=== PATIENT | male | born 1940 | race Caucasian/White ===

== ENCOUNTER → 2024-08-09 | Outpatient (CLI) | payer OTHER ==
[~2024-08-09] MED LIST: AMLO5 PO; ASPI81EC PO; BETA1 PO; ENOX100I SC; FERSU300 PO; FUROSEMIDE20 MG PO; GLUCOSAMINE; Glucophage1000 MG PO; K-Dur10 MEQ; LOSA25 PO; METF500 PO; OXYACE7.5T PO; SIMV40 PO; Simvastatin20 MG PO; TAMS.4ER PO; TIMO.5OPSO LEFTEYE; WARF5 PO
[2024-08-09 19:09] LABS: BASOPHILS ABSOLUTE AUTO 0.04 K/mm3 (0.00-0.23); BASOPHILS PERCENT AUTO 0 % (0-2); EOSINOPHILS ABSOLUTE AUTO 0.13 K/mm3 (0.00-0.68); EOSINOPHILS PERCENT AUTO 1 % (0-6); Hemoglobin 10.3 g/dL (13.5-17.5); IMMATURE GRAN ABSOLUTE AUTO 0.07 K/mm3 (0.00-0.10); IMMATURE GRAN PERCENT AUTO 1 % (0-1); LYMPHOCYTES ABSOLUTE AUTO 2.31 K/mm3 (0.84-5.20); LYMPHOCYTES PERCENT AUTO 23 % (21-46); MONOCYTES ABSOLUTE AUTO 1.22 K/mm3 (0.16-1.47); MONOCYTES PERCENT AUTO 12 % (4-13); Mean Corpuscular HGB 30.6 pg (26.0-34.0); Mean Corpuscular HGB Conc 33.2 g/dL (31.5-36.5); Mean Corpuscular Volume 92 fL (80-100); NEUTROPHILS ABSOLUTE AUTO 6.15 K/mm3 (1.96-9.15); NEUTROPHILS PERCENT AUTO 62 % (41-73); RDW Coefficient Variation 15.4 % (11.7-14.2); RDW Standard Deviation 51.8 fL (35.1-46.3); Red Blood Cell Count 3.37 M/mm3 (4.30-5.90); White Blood Cell Count 9.92 K/mm3 (4.00-11.30)
[2024-08-09 19:42] LABS: Albumin, Blood 3.1 g/dL (3.4-5.0); Albumin/Globulin Ratio 0.7 (0.8-1.8); Bilirubin, Total 0.5 mg/dL (0.1-1.0); Bun/Creatinine Ratio 25.8 (12.0-20.0); Calcium, Blood 9.1 mg/dL (8.5-10.1); Creatinine, Blood 1.24 mg/dL (0.60-1.20); Globulin, Blood 4.5 g/dL (2.2-4.0); Potassium, Blood 4.6 mmol/L (3.5-5.5); Total Protein, Blood 7.6 g/dL (6.4-8.2)
== END ==
LOC: LAB 18:43 → LAB SHORT 18:43
PROVIDERS: Nurse Practitioner Family
DX: I10 Essential (primary) hypertension (principal); D50.9 Iron deficiency anemia, unspecified; R31.0 Gross hematuria
CPT/HCPCS: 80053; 82728; 83540; 83550; 85025; 87086

== ENCOUNTER 2024-09-19 20:32 | Inpatient (IN) | payer OTHER ==
[~2024-09-19] VITALS: Ht 182.9 cm; Wt 76.7 kg
[~2024-09-19 20:32] MED LIST changes: -AMLO10 PO; -ASCO500 PO; -DORZOLAMIDE-TIM10 ML BOTHEYES; +Etomidate 2MG / ML 10ML Vial IV ONE; -FERROUS GLUCON324 M2 PO; -GUAI600T33 PO; -HYDROCODONE-AC1 EAC7 PO; -MIRALAX1714 PO; -PANT40 PO; -PREG50 PO; +Phenylephrine HCl 10mg/ml 1 ml Vial IV ONE; +Propofol 10mg/ml 20 ml Vial (Procedural) IV ONE; -TRAM50 PO
[2024-09-19 21:01] LABS: BASOPHILS ABSOLUTE AUTO 0.01 K/mm3 (0.00-0.23); BASOPHILS PERCENT AUTO 0 % (0-2); EOSINOPHILS ABSOLUTE AUTO 0.04 K/mm3 (0.00-0.68); EOSINOPHILS PERCENT AUTO 0 % (0-6); Hematocrit 18.2 % (37.0-53.0); Hemoglobin 5.6 g/dL (13.5-17.5); IMMATURE GRAN ABSOLUTE AUTO 0.42 K/mm3 (0.00-0.10); IMMATURE GRAN PERCENT AUTO 4 % (0-1); LYMPHOCYTES ABSOLUTE AUTO 2.64 K/mm3 (0.84-5.20); LYMPHOCYTES PERCENT AUTO 28 % (21-46); MONOCYTES PERCENT AUTO 9 % (4-13); Mean Corpuscular HGB 28.9 pg (26.0-34.0); Mean Corpuscular HGB Conc 30.8 g/dL (31.5-36.5); Mean Corpuscular Volume 94 fL (80-100); Mean Platelet Volume 9.9 fL (9.1-12.4); NEUTROPHILS ABSOLUTE AUTO 5.59 K/mm3 (1.96-9.15); NEUTROPHILS PERCENT AUTO 58 % (41-73); NRBC ABSOLUTE 0.36 K/mm3 (0.00-0.02); NRBC Auto 3.8 /100 WBC (0.0-0.2); Platelet Count 187 K/mm3 (150-400); RDW Coefficient Variation 18.1 % (11.7-14.2); RDW Standard Deviation 59.4 fL (35.1-46.3); Red Blood Cell Count 1.94 M/mm3 (4.30-5.90)
[2024-09-19 21:17] LABS: Albumin, Blood 2.3 g/dL (3.4-5.0); Albumin/Globulin Ratio 0.5 (0.8-1.8); Bilirubin, Total 0.6 mg/dL (0.1-1.0); Calcium, Blood 8.5 mg/dL (8.5-10.1); Creatinine, Blood 1.11 mg/dL (0.60-1.20); Globulin, Blood 4.5 g/dL (2.2-4.0); Potassium, Blood 4.6 mmol/L (3.5-5.5); Total Protein, Blood 6.8 g/dL (6.4-8.2)
[2024-09-20] MEDS ORDERED: Pantoprazole Sodium 40 MG Injection IV ONE (00:10)
[2024-09-20] MEDS ORDERED: Pantoprazole Sodium 40 MG in NS 50 ML IV SCH ×2 (00:10→01:40)
[2024-09-20] MEDS ORDERED: FLU VACC TS2024-25(6MOS UP)/PF 45 MCG/0.5 ML SYRINGE IM ONE (01:30)
[2024-09-20 08:23] LABS: Hematocrit 22.9 % (37.0-53.0); Hemoglobin 7.5 g/dL (13.5-17.5)
[2024-09-20] MEDS ORDERED: AmLODIPine Besylate 5 MG Tab PO SCH (09:00)
[2024-09-20] MEDS ORDERED: Atorvastatin 10 MG Tab PO SCH (09:00)
[2024-09-20] MEDS ORDERED: Losartan Potassium 50 MG Tab PO SCH (09:00)
[2024-09-20 10:53] LABS: International Normalized Ratio 2.18
[2024-09-20 13:56] LABS: Hematocrit 21.7 % (37.0-53.0); Hemoglobin 7.1 g/dL (13.5-17.5)
[2024-09-20] MEDS ORDERED: PREG50 PO (15:50)
[2024-09-20] MEDS ORDERED: HYDROCODONE-AC1 EAC7 PO (15:51)
[2024-09-20] MEDS ORDERED: MIRALAX1714 PO (15:52)
[2024-09-20] MEDS ORDERED: FERROUS GLUCON324 M2 PO (15:53)
[2024-09-20] MEDS ORDERED: TAMS.4ER PO (15:53)
[2024-09-20 15:54] VITALS: BP 146/58
[2024-09-20] MEDS ORDERED: ASCO500 PO (15:54)
[2024-09-20] MEDS ORDERED: AMLO10 PO (15:55)
--- NOTE | 2024-09-20 18:01 | NUR ---
SHIFT SUMMARY PT A NEW ADMIT THIS EVENING, AOX4 BUT SLIGHTLY FORGETFUL. 1 ASSIST WITH THE FWW. PT WEARS BRIEFS BUT STATES HE IS CONTINENT. CALLS AND MAKES HIS NEEDS KNOWN. PROTONIX DRIP INFUSING. PICTURES OF COCCYX WOUND IN CHART. PT REPOSITIONED SINCE ADMIT. FAMILY UPDATED. NO OTHER COMPLAINTS AT THIS TIME. CALL LIGHT WITHIN REACH, BED LOCKED AND IN THE LOWEST POSITION. WILL REPORT TO ONCOMING NURSE.
[2024-09-20 19:48] VITALS: BP 121/59
[2024-09-20 20:06] LABS: Hematocrit 23.8 % (37.0-53.0); Hemoglobin 7.7 g/dL (13.5-17.5)
--- NOTE | 2024-09-20 20:49 | NUR ---
DIRECTOR SEARCH MARKETING STRATEGIES CALLED WITH SOME ST CHANGES- BOTH ELEVATION AND DEPRESSION WITH A RHYTHYM OF AFIB. PT ASYMPTOMATIC. CAMERA PERSON KATRIN NOTIFIED. NO NEW ORDERS.
[2024-09-21 03:30] VITALS: BP 131/56
[2024-09-21 06:03] LABS: International Normalized Ratio 2.2; Prothrombin Time Results 22.2 Sec (9.7-11.5)
--- NOTE | 2024-09-21 07:12 | NUR ---
SHIFT SUMMARY PT A&O X4 WITH LIMITED VISION. ABLE TO MAKE NEEDS KNOWN. AMBULATES WITH SBA. PT DOES C/O SOME LIGHTHEADEDNESS UPON CHANGING POSITION FROM LAYING TO SITTING. CONTINUOUS PROTONIX DRIP CONTINUES. TELE WITH AFIB AND ST CHANGES, PT ASYMPTOMATIC. EKG DONE, LEADS REPOSITIONED AND THEN REPLACED. PT SLEPT LONG INTERVALS THROUGH THE NIGHT. NPO AFTER 0600. BED IN LOWEST POSITION, CALL LIGHT WITHIN REACH, SIDE RAILS UP X3.
[2024-09-21 07:30] VITALS: BP 121/89
[2024-09-21 07:40] LABS: Hematocrit 23.8 % (37.0-53.0); Hemoglobin 7.7 g/dL (13.5-17.5); Mean Corpuscular HGB 29.8 pg (26.0-34.0); Mean Corpuscular HGB Conc 32.4 g/dL (31.5-36.5); Mean Corpuscular Volume 92 fL (80-100); Mean Platelet Volume 11.5 fL (9.1-12.4); NRBC ABSOLUTE 0.27 K/mm3 (0.00-0.02); NRBC Auto 3.1 /100 WBC (0.0-0.2); Platelet Count 127 K/mm3 (150-400); RDW Coefficient Variation 17.8 % (11.7-14.2); RDW Standard Deviation 57.3 fL (35.1-46.3); Red Blood Cell Count 2.58 M/mm3 (4.30-5.90); White Blood Cell Count 8.65 K/mm3 (4.00-11.30)
[2024-09-21 08:03] LABS: Bun/Creatinine Ratio 31.9 (12.0-20.0); Calcium, Blood 8.9 mg/dL (8.5-10.1); Creatinine, Blood 0.88 mg/dL (0.60-1.20); Potassium, Blood 4.5 mmol/L (3.5-5.5)
[2024-09-21 09:11] LABS: BAND PERCENT MAN 3 % (0-8); BASOPHILS ABSOLUTE MAN 0.08 K/mm3 (0.00-0.23); BASOPHILS PERCENT MAN 1 % (0-2); EOSINOPHILS ABSOLUTE MAN 0.08 K/mm3 (0.00-0.68); EOSINOPHILS PERCENT MAN 1 % (0-6); LYMPHOCYTES ABSOLUTE MAN 1.38 K/mm3 (0.84-5.20); LYMPHOCYTES PERCENT MAN 16 % (21-46); METAMYELOCYTE ABSOLUTE MAN 0.08 K/mm3 (0.00-0.00); METAMYELOCYTE PERCENT MAN 1 % (0-0); MONOCYTES ABSOLUTE MAN 0.25 K/mm3 (0.16-1.47); MONOCYTES PERCENT MAN 3 % (4-13); MYELOCYTE ABSOLUTE MAN 0.34 K/mm3 (0.00-0.00); MYELOCYTE PERCENT MAN 4 % (0-0); SEG NEUTROPHILS PERCENT MAN 71 % (41-73); TOTAL CELLS COUNTED 100
[2024-09-21] MEDS ORDERED: Lactated Ringer's 1,000 ML IV SCH (12:20)
[2024-09-21 12:40] VITALS: BP 135/68
[2024-09-21] MEDS ORDERED: Lidocaine HCl 4% 5 ML SDA ONE (12:52)
--- NOTE | 2024-09-21 13:11 | NUR ---
09/21/24 1311 Tiarra Landin 1305-History, Chart, Medications and Allergies reviewed before start of procedure.MONITOR INTACT WITH CONTINUOUS PULSE OXIMETRY, CONTINUOUS END TITAL CO2, AND INTERMITTENT BLOOD PRESSURE.3-LEAD EKG REVIEWED WITH PHYSICIAN PRIOR TO START OF PROCEDURE.O2 VIA POM INTACT THROUGHOUT SEDATION/PROCEDURE.Bite Block Placed.DR. OVALLE PROVIDING MAC-SEE ANESTHESIA RECORD.
[2024-09-21 14:50] VITALS: BP 117/53
[2024-09-21] MEDS ORDERED: Pregabalin 50 MG Capsule PO ONE (15:50)
[2024-09-21 15:56] VITALS: BP 122/60
[2024-09-21] MEDS ORDERED: GUAI600T33 PO (16:33)
[2024-09-21] MEDS ORDERED: TRAM50 PO (16:37)
[2024-09-21] MEDS ORDERED: DORZOLAMIDE-TIM10 ML BOTHEYES (16:40)
[2024-09-21 17:18] LABS: Hematocrit 23.2 % (37.0-53.0); Hemoglobin 7.6 g/dL (13.5-17.5)
[2024-09-21] MEDS ORDERED: WARF2.5 PO (17:37)
--- NOTE | 2024-09-21 17:58 | NUR ---
SHIFT SUMMARY PT AOX4, CALLS AND MAKES HIS NEEDS KNOWN. SBA TO THE BR. ENDO DONE TODAY, PROTONIX DRIP STOPPED. PT MEDICATED FOR NERVE/BACK PAIN PER THE EMAR. PT TOLERATED IT WELL. REPOSITIONED THROUGHOUT THE SHIFT. SBA TO THE BR USING FWW. POSSIBLE DC TOMORROW, TRENDING H AND HERNÁNDEZ. NO EVENTS PER TELE. CALL LIGHT WITHIN REACH, BED LOCKED AND IN THE LOWEST POSITION.
[2024-09-21 20:44] VITALS: BP 115/54
[2024-09-22 02:13] VITALS: BP 123/59
[2024-09-22 05:38] LABS: Hematocrit 23.9 % (37.0-53.0); Hemoglobin 7.7 g/dL (13.5-17.5); Mean Corpuscular HGB 29.8 pg (26.0-34.0); Mean Corpuscular HGB Conc 32.2 g/dL (31.5-36.5); Mean Corpuscular Volume 93 fL (80-100); Mean Platelet Volume 9.7 fL (9.1-12.4); NRBC ABSOLUTE 0.18 K/mm3 (0.00-0.02); NRBC Auto 2.3 /100 WBC (0.0-0.2); Platelet Count 155 K/mm3 (150-400); RDW Coefficient Variation 17.9 % (11.7-14.2); RDW Standard Deviation 57.2 fL (35.1-46.3); Red Blood Cell Count 2.58 M/mm3 (4.30-5.90); White Blood Cell Count 7.94 K/mm3 (4.00-11.30)
[2024-09-22 06:10] LABS: Bun/Creatinine Ratio 28.7 (12.0-20.0); Calcium, Blood 9.1 mg/dL (8.5-10.1); Creatinine, Blood 0.77 mg/dL (0.60-1.20); Potassium, Blood 4.3 mmol/L (3.5-5.5)
[2024-09-22 06:12] LABS: BAND PERCENT MAN 2 % (0-8); BASOPHILS ABSOLUTE MAN 0.07 K/mm3 (0.00-0.23); BASOPHILS PERCENT MAN 1 % (0-2); EOSINOPHILS ABSOLUTE MAN 0.23 K/mm3 (0.00-0.68); EOSINOPHILS PERCENT MAN 3 % (0-6); LYMPHOCYTES ABSOLUTE MAN 1.98 K/mm3 (0.84-5.20); LYMPHOCYTES PERCENT MAN 25 % (21-46); MONOCYTES ABSOLUTE MAN 0.55 K/mm3 (0.16-1.47); MONOCYTES PERCENT MAN 7 % (4-13); MYELOCYTE ABSOLUTE MAN 0.07 K/mm3 (0.00-0.00); MYELOCYTE PERCENT MAN 1 % (0-0); SEG NEUTROPHILS PERCENT MAN 61 % (41-73); TOTAL CELLS COUNTED 100
--- NOTE | 2024-09-22 06:12 | NUR ---
SHIFT SUMMARY PT A&O X4 WITH LIMITED VISION. DENIES FEELING DIZZY OR LIGHTHEADED WHEN UP. AMBULATEDS TO THE BR WITH WALKER AND SBA. TELE WITH AFIB- AT 0400 PT HAD 4 BEATS IN THE 40'S. HE WAS ASYMTOMATIC. PT SLEPT INTERMITTENTLY THROUGH THE NIGHT. BED IN LOWEST POSITION, CALL LIGHT WITHIN REACH, SIDE RAILS UP X2.
[2024-09-22 07:36] VITALS: BP 125/61
[2024-09-22] MEDS ORDERED: Pregabalin 50 MG Capsule PO SCH (09:00)
[2024-09-22 13:00] LABS: Percent Saturation 32.1 % (20.0-50.0)
[2024-09-22 13:46] LABS: International Normalized Ratio 2.29
[2024-09-22] MEDS ORDERED: PANT40 PO (14:25)
[2024-09-23] MEDS ORDERED: Pantoprazole Sodium 40 MG Tab PO SCH (06:00)
== END 2024-09-22 15:20 | disposition home health service (06) | DRG 811 ==
LOC: ER 20:32 → MEDS 20:33 → ERHOLD 20:33 → MEDS 09-20 15:11 → ENPENDDIS 09-22 14:10 → MEDS 09-22 15:20
PROVIDERS: Family Medicine; Physician Assistant; Student in an Organized Health Care Education/Training Program; Surgery; ADMIT Internal Medicine
PROC: 30233N1 Transfusion of Nonautologous Red Blood Cells into Peripheral Vein, Percutaneous Approach (ICD-10-PCS; principal; 2024-09-19)
PROC: 0DJ08ZZ Inspection of Upper Intestinal Tract, Via Natural or Artificial Opening Endoscopic (ICD-10-PCS; 2024-09-21)
DX: D62 Acute posthemorrhagic anemia (principal); K29.71 Gastritis, unspecified, with bleeding; I48.91 Unspecified atrial fibrillation; F17.210 Nicotine dependence, cigarettes, uncomplicated; D50.9 Iron deficiency anemia, unspecified; K22.2 Esophageal obstruction; Z66 Do not resuscitate; E78.00 Pure hypercholesterolemia, unspecified; I11.0 Hypertensive heart disease with heart failure; I50.9 Heart failure, unspecified; I35.0 Nonrheumatic aortic (valve) stenosis; Z90.49 Acquired absence of other specified parts of digestive tract; Z79.899 Other long term (current) drug therapy; Z79.2 Long term (current) use of antibiotics; Z98.890 Other specified postprocedural states; Z98.41 Cataract extraction status, right eye; Z28.21 Immunization not carried out because of patient refusal; Z79.01 Long term (current) use of anticoagulants
CPT/HCPCS: 36415; 36430; 80048; 80053; 82272; 82728; 83540; 83550; 85014; 85018; 85025; 85610; 85730; 86850; 86900; 86901; 86923; 93005; 93010; 96365; 96366; 96376; 97110; 97162; 99285; A9270; G0378; J2003; J2371; J2470; J2704; J7120; P9016

== ENCOUNTER → 2024-09-19 | Outpatient (CLI) | payer OTHER ==
[~2024-09-19] MED LIST changes: +AMLO10 PO; +ASCO500 PO; +DORZOLAMIDE-TIM10 ML BOTHEYES; +FERROUS GLUCON324 M2 PO; +GUAI600T33 PO; +HYDROCODONE-AC1 EAC7 PO; -LOSA25 PO; +LOSARTAN POTAS100 M1 PO; +MIRALAX1714 PO; +PANT40 PO; +PREG50 PO; +TRAM50 PO; +WARF2.5 PO; -WARF5 PO
[2024-09-19 19:05] LABS: BASOPHILS ABSOLUTE AUTO 0.01 K/mm3 (0.00-0.23); BASOPHILS PERCENT AUTO 0 % (0-2); EOSINOPHILS ABSOLUTE AUTO 0.03 K/mm3 (0.00-0.68); EOSINOPHILS PERCENT AUTO 0 % (0-6); Hematocrit 18.9 % (37.0-53.0); IMMATURE GRAN PERCENT AUTO 5 % (0-1); LYMPHOCYTES ABSOLUTE AUTO 1.82 K/mm3 (0.84-5.20); LYMPHOCYTES PERCENT AUTO 22 % (21-46); MONOCYTES ABSOLUTE AUTO 0.74 K/mm3 (0.16-1.47); MONOCYTES PERCENT AUTO 9 % (4-13); Mean Corpuscular HGB 28.6 pg (26.0-34.0); Mean Corpuscular HGB Conc 31.2 g/dL (31.5-36.5); Mean Corpuscular Volume 92 fL (80-100); Mean Platelet Volume 11.4 fL (9.1-12.4); NEUTROPHILS ABSOLUTE AUTO 5.44 K/mm3 (1.96-9.15); NEUTROPHILS PERCENT AUTO 64 % (41-73); NRBC ABSOLUTE 0.35 K/mm3 (0.00-0.02); NRBC Auto 4.1 /100 WBC (0.0-0.2); Platelet Count 119 K/mm3 (150-400); RDW Standard Deviation 57.1 fL (35.1-46.3); Red Blood Cell Count 2.06 M/mm3 (4.30-5.90); White Blood Cell Count 8.44 K/mm3 (4.00-11.30)
[2024-09-19 19:13] LABS: Hemoglobin 5.9 g/dL (13.5-17.5)
[2024-09-19 19:52] LABS: Albumin, Blood 2.3 g/dL (3.4-5.0); Albumin/Globulin Ratio 0.5 (0.8-1.8); Bilirubin, Total 0.5 mg/dL (0.1-1.0); Bun/Creatinine Ratio 46.8 (12.0-20.0); Calcium, Blood 8.5 mg/dL (8.5-10.1); Creatinine, Blood 1.09 mg/dL (0.60-1.20); Globulin, Blood 4.8 g/dL (2.2-4.0); Potassium, Blood 4.6 mmol/L (3.5-5.5); Total Protein, Blood 7.1 g/dL (6.4-8.2)
== END ==
LOC: LAB SHORT 17:47 → LAB 17:47
PROVIDERS: Nurse Practitioner Family
DX: D50.9 Iron deficiency anemia, unspecified (principal)
CPT/HCPCS: 80053; 85025

== ENCOUNTER 2024-09-25 15:25 | Inpatient (IN) | payer OTHER ==
[~2024-09-25] VITALS: Ht 175.3 cm; Wt 85.0 kg
[~2024-09-25 15:25] MED LIST changes: +AMLO10 PO; +ASCO500 PO; +DORZOLAMIDE-TIM10 ML BOTHEYES; -Etomidate 2MG / ML 10ML Vial IV ONE; +FERROUS GLUCON324 M2 PO; +GUAI600T33 PO; +HYDROCODONE-AC1 EAC7 PO; +MIRALAX1714 PO; +PANT40 PO; +PREG50 PO; -Phenylephrine HCl 10mg/ml 1 ml Vial IV ONE; -Propofol 10mg/ml 20 ml Vial (Procedural) IV ONE; +TRAM50 PO
[2024-09-25] MEDS ORDERED: Pantoprazole Sodium 40 MG Injection IV ONE (16:05)
[2024-09-25 16:16] LABS: Hematocrit 24.3 % (37.0-53.0); Hemoglobin 7.6 g/dL (13.5-17.5); Mean Corpuscular HGB 29.1 pg (26.0-34.0); Mean Corpuscular HGB Conc 31.3 g/dL (31.5-36.5); Mean Corpuscular Volume 93 fL (80-100); Mean Platelet Volume 11.4 fL (9.1-12.4); NRBC ABSOLUTE 0.06 K/mm3 (0.00-0.02); NRBC Auto 0.7 /100 WBC (0.0-0.2); Platelet Count 133 K/mm3 (150-400); RDW Coefficient Variation 17.7 % (11.7-14.2); RDW Standard Deviation 57.4 fL (35.1-46.3); Red Blood Cell Count 2.61 M/mm3 (4.30-5.90); White Blood Cell Count 8.62 K/mm3 (4.00-11.30)
[2024-09-25 16:30] LABS: International Normalized Ratio 3.5; Prothrombin Time Results 34.1 Sec (9.7-11.5)
[2024-09-25 16:47] LABS: BAND PERCENT MAN 1 % (0-8); BASOPHILS ABSOLUTE MAN 0.08 K/mm3 (0.00-0.23); BASOPHILS PERCENT MAN 1 % (0-2); EOSINOPHILS ABSOLUTE MAN 0.17 K/mm3 (0.00-0.68); EOSINOPHILS PERCENT MAN 2 % (0-6); LYMPHOCYTES ABSOLUTE MAN 1.89 K/mm3 (0.84-5.20); LYMPHOCYTES PERCENT MAN 22 % (21-46); METAMYELOCYTE ABSOLUTE MAN 0.08 K/mm3 (0.00-0.00); METAMYELOCYTE PERCENT MAN 1 % (0-0); MONOCYTES ABSOLUTE MAN 0.51 K/mm3 (0.16-1.47); MONOCYTES PERCENT MAN 6 % (4-13); MYELOCYTE ABSOLUTE MAN 0.17 K/mm3 (0.00-0.00); MYELOCYTE PERCENT MAN 2 % (0-0); NEUTROPHILS ABSOLUTE MAN 5.68 K/mm3 (1.96-9.15); SEG NEUTROPHILS PERCENT MAN 65 % (41-73); TOTAL CELLS COUNTED 100
[2024-09-25 16:58] LABS: Albumin, Blood 2.3 g/dL (3.4-5.0); Albumin/Globulin Ratio 0.5 (0.8-1.8); Bilirubin, Total 0.8 mg/dL (0.1-1.0); Bun/Creatinine Ratio 20.5 (12.0-20.0); Calcium, Blood 8.6 mg/dL (8.5-10.1); Creatinine, Blood 1.56 mg/dL (0.60-1.20); Globulin, Blood 4.3 g/dL (2.2-4.0); Potassium, Blood 4.8 mmol/L (3.5-5.5); Total Protein, Blood 6.6 g/dL (6.4-8.2)
[2024-09-25] MEDS ORDERED: NS 1,000 ML IV SCH (18:40)
[2024-09-25] MEDS ORDERED: Lactated Ringer's 1,000 ML IV ONE (21:29)
[2024-09-25] MEDS ORDERED: Ondansetron HCl 2 MG / ML 2ML Vial IV PRN (21:30)
[2024-09-25] MEDS ORDERED: FLU VACC TS2024-25(6MOS UP)/PF 45 MCG/0.5 ML SYRINGE IM ONE (21:30)
[2024-09-25] MEDS ORDERED: HYDROcodone 10-APAP 325 TAB PO PRN (21:35)
[2024-09-25] MEDS ORDERED: Lactated Ringer's 1,000 ML IV SCH (22:00)
[2024-09-25] MEDS ORDERED: Atorvastatin 10 MG Tab PO SCH (22:11)
[2024-09-25 22:39] LABS: Hematocrit 22.5 % (37.0-53.0)
[2024-09-26 05:59] LABS: Hemoglobin 7.3 g/dL (13.5-17.5)
[2024-09-26] MEDS ORDERED: Pantoprazole Sodium 40 MG Injection IV SCH (06:00)
[2024-09-26 06:20] LABS: International Normalized Ratio 3.81; Prothrombin Time Results 36.9 Sec (9.7-11.5)
[2024-09-26 06:28] LABS: Albumin/Globulin Ratio 0.5 (0.8-1.8); Bilirubin, Total 0.6 mg/dL (0.1-1.0); Bun/Creatinine Ratio 24.8 (12.0-20.0); Calcium, Blood 8.3 mg/dL (8.5-10.1); Creatinine, Blood 1.17 mg/dL (0.60-1.20); Globulin, Blood 4.1 g/dL (2.2-4.0); Magnesium, Blood 2.1 mg/dL (1.6-2.4); Potassium, Blood 4.6 mmol/L (3.5-5.5); Total Protein, Blood 6.1 g/dL (6.4-8.2)
[2024-09-26] MEDS ORDERED: Lactated Ringer's 1,000 ML IV ONE (06:29)
[2024-09-26] MEDS ORDERED: AmLODIPine Besylate 5 MG Tab PO SCH (09:00)
[2024-09-26] MEDS ORDERED: Tamsulosin HCl 0.4 MG Cap PO SCH (09:00)
[2024-09-26] MEDS ORDERED: Pregabalin 50 MG Capsule PO SCH (09:00)
[2024-09-26] MEDS ORDERED: Losartan Potassium 50 MG Tab PO SCH (09:00)
[2024-09-26 13:25] VITALS: BP 104/49
[2024-09-26 15:51] VITALS: BP 109/48
--- NOTE | 2024-09-26 17:27 | NUR ---
ADMISSION/SHIFT SUMMARY: PT IS A NEW ADMIT, ARRIVING TO UNIT AT APPROX 1315. PT IS A&Ox4, ANSWERS QUESTIONS APPROPRIATELY, IS COOPERATIVE W/CARE. PT HAS GLASSES, STATES HE IS LEGALLY BLIND AND HAS A DIFFICULT TIME SEEING CLEARLY. O2 SATS MAINTAINED >93% ON 2 L/MIN (RA BASELINE), PT REPORTS IMPROVEMENT TO SOB SINCE ADMISSION. PT DENIES CP, AFIB ON MONITOR W/RATE 60s. PT UNSURE OF DATE OF LAST BM, STATES A WEEK OR MORE, DESCRIBES STOOL DARK/BLACK. NO BM THIS SHIFT, MALE PUREWICK IN PLACE AND SET TO LOW CONT SUCTION. DR ZARAGOZA TO BEDSIDE THIS AFTERNOON, CURRENT PLAN IS FOR PT TO COMPLETE BOWEL PREP FOR COLONOSCOPY TOMORROW AM. PER DR ZARAGOZA, PT CAN HAVE CL DIET UNTIL APPROX 0600 ON 09/27/24 WHICH WOULD BE APPROX 3 HOURS BEFORE PROCEDURE. PT IS AGREEABLE TO PLAN OF CARE, RESTING QUIETLY IN ROOM WITH CALL LIGHT IN REACH.
[2024-09-26] MEDS ORDERED: Sodium, Potassium,Mag Sulfates 354 ML PO SCH (18:00)
[2024-09-26 18:09] LABS: Hematocrit 23.4 % (37.0-53.0); Hemoglobin 7.3 g/dL (13.5-17.5); Mean Corpuscular HGB 29.3 pg (26.0-34.0); Mean Corpuscular HGB Conc 31.2 g/dL (31.5-36.5); Mean Corpuscular Volume 94 fL (80-100); Mean Platelet Volume 11.4 fL (9.1-12.4); NRBC ABSOLUTE 0.07 K/mm3 (0.00-0.02); NRBC Auto 0.9 /100 WBC (0.0-0.2); Platelet Count 140 K/mm3 (150-400); RDW Coefficient Variation 18.1 % (11.7-14.2); RDW Standard Deviation 60.9 fL (35.1-46.3); Red Blood Cell Count 2.49 M/mm3 (4.30-5.90); White Blood Cell Count 7.45 K/mm3 (4.00-11.30)
[2024-09-26 20:26] VITALS: BP 103/48
[2024-09-27] VITALS (39 sets, daily range): BP systolic 84–113; BP diastolic 37–58
[2024-09-27 04:08] LABS: Hematocrit 21.1 % (37.0-53.0); Hemoglobin 6.5 g/dL (13.5-17.5); Mean Corpuscular HGB 28.8 pg (26.0-34.0); Mean Corpuscular HGB Conc 30.8 g/dL (31.5-36.5); Mean Corpuscular Volume 93 fL (80-100); Mean Platelet Volume 10.6 fL (9.1-12.4); NRBC ABSOLUTE 0.11 K/mm3 (0.00-0.02); NRBC Auto 1.7 /100 WBC (0.0-0.2); Platelet Count 138 K/mm3 (150-400); Red Blood Cell Count 2.26 M/mm3 (4.30-5.90); White Blood Cell Count 6.65 K/mm3 (4.00-11.30)
[2024-09-27] MEDS ORDERED: NS 500 ML IV SCH (06:15)
--- NOTE | 2024-09-27 06:45 | NUR ---
PT VITAL SIGNS STABLE THROUGHOUT THE SHIFT. PT IS AOX4, CALM AND COOPERATIVE WITH CARE. PT IS [place] BUT IS ABLE TO ANSWER QUESTIONS AND MAKE NEEDS KNOWN. PT HAS HGB 6.5 THIS AM AND IS RECEIVING 1 UNIT PRBC AND TOLERATING WELL AT THIS TIME. PT HAS COMPLETED DRINKNG SUREPREP AND HAS HAD 3 BMS, LOOSE/LIQUID BLACK/GREEN. BOWEL PREP NOT CLEAR AT THIS TIME. PT REPORTS GENERALIZED WEAKNESS BUT NO CHEST PAIN OR DYSPNEA. PT 1-2 ASSIST TO BSC. PUREWICK IN PLACE WITH GOOD URINE OUTPUT.
[2024-09-27 07:04] LABS: Albumin, Blood 1.8 g/dL (3.4-5.0); Anion Gap 9 mmol/L (3-11); Blood Urea Nitrogen 25 mg/dL (8-24); Bun/Creatinine Ratio 23.4 (12.0-20.0); CO2, Blood 26 mmol/L (21-32); Calcium, Blood 8.3 mg/dL (8.5-10.1); Chloride, Blood 106 mmol/L (98-108); Creatinine, Blood 1.07 mg/dL (0.60-1.20); Glomerular Filtration Rate 68 (60-); Glucose, Blood 140 mg/dL (70-99); Phosphorus, Blood 3.5 mg/dL (2.5-4.9); Potassium, Blood 4.4 mmol/L (3.5-5.5); Sodium, Blood 137 mmol/L (136-145)
[2024-09-27] MEDS ORDERED: Midodrine 5 MG Tab PO SCH ×2 (09:40→21:00)
[2024-09-27] MEDS ORDERED: Lactated Ringer's 1,000 ML IV SCH (09:45)
[2024-09-27] MEDS ORDERED: Sod Phosphate/Sod Biphosphate 132 ML BTL PR PRN (10:10)
[2024-09-27] MEDS ORDERED: propofoL 40 ML IV ONE (10:42)
--- NOTE | 2024-09-27 10:52 | NUR ---
Dr. Robert was called this morning because despite bowel prep for the colonoscopy the pt's stool was a dark brown/black around 0715. Dr. Robert wanted to be notifed if it clears up around 130. About 0950 the pt was usinig the [facility] and Dr. Robert stopped by the room. He ordered an enema if the stools were not clear. The enema was given and the pt held the medication in for about 15 minutes. His stools were dark green in color. Dr. Robert was notified and he wants to proceed with colonoscopy anyways. See notes for updates.
[2024-09-27 11:22] LABS: Hemoglobin 8.1 g/dL (13.5-17.5)
--- NOTE | 2024-09-27 11:53 | NUR ---
09/27/24 1153 Rose Marie Horne 1143- MONITOR INTACT WITH CONTINUOUS PULSE OXIMETRY, CONTINUOUS END TITAL CO2, AND INTERMITTENT BLOOD PRESSURE.
[2024-09-27] MEDS ORDERED: Midodrine 5 MG Tab PO ONE (15:55)
[2024-09-27] MEDS ORDERED: NS 1,000 ML IV ONE (15:55)
--- NOTE | 2024-09-27 17:02 | NUR ---
SHIFT SUMMARY NEURO: PT IS A&OX4, [place], AND HAS BEEN WITHDRAWN THIS SHIFT. 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 HE FEELS VERY FATIGUED AND HAS SLEPT MAJORITY OF THE SHIFT. HE IS A 1-2P ASSIST TX. CARDIAC: ON TELE THE PT HAS BEEN AFIB 60'S-70'S. HE DENIES ANY ANGINA OR CHEST PRESSURE. HIS BLOOD PRESSURE HAS BEEN LOW. HE HAD 1 UNIT OF PRBC INFUSING AT THE BEGINNING OF THE SHIFT AND HIS PRESSURE WAS STABLE IN THE MORNING W/ HIS MAP >60. DR. ESTES STARTED THE PT ON 10MG TID X3 DOSES OF MIDODRINE. POST COLONOSCOPY THE PT'S MAP BEGAN TO DROP<60. DR. ESTES CALLED AND INCREASED THE PT'S MIDODRINE TO 15 MG FOR THE UPCOMING SCHEDULED DOSES. HE ADDED MIDODRIINE 15MG TIDP PRN STARTING AT 0000. THE PT'S BLOOD PRESSURE CONTINUED TO HAVE THE MAP IN THE 50'S DESPITE THE MIDODRINE AND LAYING SUPINE. DR. ESTES ORDERED A 1L BOLUS TO BE GIVEN OVER 2HRS AT A RATE OF 500CC'S. BLOOD PRESSURE STILL WITH MAP 58-63. THIS RN CALLED DR ESTES AND ASKED WHAT HE WOULD LIKE IF THE PT'S BLOOD PRESSURE CONTINUES TO DROP. DR. ESTES SAID HE IS GOING TO ORDER MAINTANCE FLUIDS AND HE WOULD BE OKAY IF THE PT RECIEVED UP TO 3L OF FLUIDS BEFORE BEING SENT TO ICU FOR PRESSORS. THIS WAS DISCUSSED WITH CAR STORER FRANCINE Mota. BLOOD PRESSURES BEING MONITORED Q15 AT THIS TIME . RESP: THE PT HAS BEEN ON 1L NC THE ENTIRE DAY TO HELP MAINTAIN SP02 >93%. HE WAS TRIALED ON RA BUT THE PT DESATURATED TO 89% WHILE ASLEEP. THE PT DENIES ANY SOB. HE USES RA AT HOME. THE HAS HAD A PRODUCTIVE COUGH W/ THICK YELLOW/BRUNSON SPUTUM. HIS LUNG SOUNDS HAVE BEEN CLEAR BUT DIMINISHED IN THE BASES. INCENTIVE SPIROMETER ENCOURAGED WITH THE PT. GI/: THE PT HAS A MALE PURWICK SET UP TO SUCTION DRAINING JOSE COLORED URINE. SITE W/O EXCORIATION. HE HAS HAD MULTIPLE LOOSE BOWEL MOVEMENTS TODAY. SEE PREVIOUS NOTE. HE HAD A COLONOSCOPY THIS AFTERNOON W/ DR. ZARAGOZA. POST PROCEDURE DR. ZARAGOZA CLEARED THE PT FOR A REGULAR DIET. THE PT HAS A FULL SET OF DENTURES IN HIS DISPOSITION AND TOLERATED MEALS WELL. SKIN: PT HAS A BLANCHABLE COCCYX AND A MEPILEX IS C/D/I AND CHANGED THIS SHIFT. THE PT IS PALE IN OVERALL APPEARANCE. NOTES: DR. ESTES SPOKE WITH THE PT THIS MORNING ABOUT CT AND PSA FINDINGS. BOTH OF THE PT'S SON'S CAME IN AND DR. ESTES CAME BACK TO BEDSIDE AND SPOKE WITH BOTH OF THE SON'S. ONE OF THE SONS STATED HE MISSED A CALL FROM THE ONCOLOGIST YESTERDAY AND DR. ESTES DIRECTED THE SONS TO CALL THE ONCOLOGIST BACK TOMORROW. ALSO, THE SON'S STATED THEY WOULD WANT THEIR DAD TO GO TO [facility], NOT [facility], IF SNF IS INDICATED. THIS WAS DISCUSSED WITH CAR STORERJOHNNIE Mota. SEE NOTES FOR UPDATES.
[2024-09-27] MEDS ORDERED: NS 1,000 ML IV SCH ×2 (18:00)
[2024-09-27 18:38] LABS: Hematocrit 23.2 % (37.0-53.0); Hemoglobin 7.5 g/dL (13.5-17.5); Mean Corpuscular HGB Conc 32.3 g/dL (31.5-36.5); Mean Corpuscular Volume 90 fL (80-100); NRBC ABSOLUTE 0.13 K/mm3 (0.00-0.02); NRBC Auto 2.2 /100 WBC (0.0-0.2); RDW Coefficient Variation 18.2 % (11.7-14.2); RDW Standard Deviation 57.6 fL (35.1-46.3); Red Blood Cell Count 2.59 M/mm3 (4.30-5.90); White Blood Cell Count 5.85 K/mm3 (4.00-11.30)
--- NOTE | 2024-09-27 18:40 | NUR ---
THIS RN SPOKE WITH THE PT'S SON AND UPDATED HIM ON THE PT'S CONSISTANT LOW BLOOD PRESSURE AND THE PLAN ON CARE. THE PT'S SON GARRY SAID HE WOULD WANT HIS DAD TO GO TO ICU IF NEEDED FOR PRESSORS. THIS WAS DISCUSSED WITH CHARGE RNS FRANCINE Mota AND JLUIS Gramajo. SEE NOTES FOR UPDATES
[2024-09-27 18:57] LABS: Mean Platelet Volume 11.1 fL (9.1-12.4); Platelet Count 113 K/mm3 (150-400)
[2024-09-28] MEDS ORDERED: Midodrine 5 MG Tab PO PRN
--- NOTE | 2024-09-28 00:36 | NUR ---
0000 UPDATE PT VERY PLEASANT. REMAINS A&OX4. BP IMPROVING. CONTINUOUS FLUIDS RUNNING WITH MIDODRINE GIVEN PER DEC. CURRENTLY READING 112/49 WITH MAP 67. PT HAS NO C/O PAIN AT THIS TIME, REPORTS ONLY HAVING PAIN WITH MOVEMENT. POWERGLIDE PLACED IN EZE WITH NO ISSUES. PT HAS SCD'S IN PLACE WITH FREQUENT WEIGHT SHIFTING. NO FURTHER QUESTIONS OR CONCERNS AT THIS TIME. WILL CONTINUE TO MONITOR.
[2024-09-28] MEDS ORDERED: Melatonin 5 MG Tablet PO ONE (01:00)
[2024-09-28 01:15] VITALS: BP 119/53
[2024-09-28 04:00] VITALS: BP 119/52
[2024-09-28 05:29] LABS: Hematocrit 22.5 % (37.0-53.0); Hemoglobin 7.3 g/dL (13.5-17.5); Mean Corpuscular HGB 29.7 pg (26.0-34.0); Mean Corpuscular HGB Conc 32.4 g/dL (31.5-36.5); Mean Corpuscular Volume 92 fL (80-100); Mean Platelet Volume 11.4 fL (9.1-12.4); NRBC ABSOLUTE 0.11 K/mm3 (0.00-0.02); NRBC Auto 1.5 /100 WBC (0.0-0.2); Platelet Count 141 K/mm3 (150-400); RDW Coefficient Variation 18.2 % (11.7-14.2); RDW Standard Deviation 59.4 fL (35.1-46.3); Red Blood Cell Count 2.46 M/mm3 (4.30-5.90); White Blood Cell Count 7.22 K/mm3 (4.00-11.30)
[2024-09-28 06:01] LABS: Bun/Creatinine Ratio 28.2 (12.0-20.0); Calcium, Blood 8.1 mg/dL (8.5-10.1); Creatinine, Blood 0.99 mg/dL (0.60-1.20); Potassium, Blood 3.9 mmol/L (3.5-5.5)
--- NOTE | 2024-09-28 07:17 | NUR ---
SHIFT SUMMARY PT REMAINS A&OX4. VSS ON 1L >90%. PTs BP TRENDING UPWARDS. PT HAS MALE PUREWICK IN PLACE WITH GOOD OUPUT. PT HAS NO C/O PAIN AT THIS TIME. NO FURTHER QUESTIONS OR CONCERNS AT THIS TIME. REPORT GIVEN TO ONCOMING NURSE
[2024-09-28 08:28] VITALS: BP 110/47
[2024-09-28 12:34] VITALS: BP 131/70
[2024-09-28 15:07] VITALS: BP 122/66
--- NOTE | 2024-09-28 15:30 | NUR ---
Met with pt along with son and rosalio-in-law at bedside. The patient is alert, oriented. He states he has gotten too weak and becomes too confused to live alone any longer. His son states the plan at this time is for pt to go to SNF for strengthening and gait training, then hopefully move to [facility] (Assisted Living) where he can focus on cancer treatment.
--- NOTE | 2024-09-28 17:23 | NUR ---
Shift Summary Neuro: a/ox4 t/o shift, obeys commands, makes needs known, pt reported stiffness and pain in his lower back, but declined pain medication at this time. Resp: on 1-2L NC, O2 sats above 90% Cardio: BP stable, systolic 110's, pt denies chest pain/pressure/SOB GI/: continent of stool, no bm this shift. Male purewick in place and draining to suction. Integ: small amount of redness on coccyx, blanchable, assisted pt with position changes t/o day. Plan to attempt to coordinate a biopsy tomorrow, then d/c to [facility], follow-up with oncology. No acute events this shift.
[2024-09-28 19:34] VITALS: BP 115/45
[2024-09-29 00:08] VITALS: BP 121/57
[2024-09-29 04:49] VITALS: BP 137/57
[2024-09-29 04:54] LABS: Hematocrit 23.4 % (37.0-53.0); Hemoglobin 7.3 g/dL (13.5-17.5); Mean Corpuscular HGB 29.3 pg (26.0-34.0); Mean Corpuscular HGB Conc 31.2 g/dL (31.5-36.5); Mean Corpuscular Volume 94 fL (80-100); NRBC ABSOLUTE 0.03 K/mm3 (0.00-0.02); NRBC Auto 0.4 /100 WBC (0.0-0.2); Platelet Count 130 K/mm3 (150-400); RDW Coefficient Variation 18.3 % (11.7-14.2); RDW Standard Deviation 61.3 fL (35.1-46.3); Red Blood Cell Count 2.49 M/mm3 (4.30-5.90); White Blood Cell Count 6.88 K/mm3 (4.00-11.30)
--- NOTE | 2024-09-29 05:49 | NUR ---
SHIFT SUMMARY PATIENT ALERT, ORIENTED x4. ABLE TO MAKE NEEDS KNOWN TO STAFF. [place]. BP STABLE. PATIENT ON 1L NC WITH SPO2 >90%. TELE READING AFIB 80-90s DURING THE NIGHT. NO DARK/BLOODY BMs OR S/S BLEEDING. PUREWICK IN PLACE, DARK URINE OUT. PATIENT TOLERATING PO. NO OTHER CHANGES. WILL REPORT TO DAY SHIFT RN.
[2024-09-29 07:32] VITALS: BP 122/62
--- NOTE | 2024-09-29 09:59 | NUR ---
am note this rn assumed care at 0700 from cyndi rn, and bedside shift report done. vital signs stable. tele afib 80s. spo2 >90% on 2l nc. patient is alert and oriented x4. neuro is intact. patient denies pain, chest pain/pressure or shortness of breath at this time. see shift assessment for further detials. md conde in the room and discussed plan of care. plan for biopsy hopefully today, and then to discharge to [facility]pc facility. md conde updated patient on speaking with md tyson, oncologist,and that he will see the patient next week. Orion from [facility] in the room around 0920 and speaking with patient about placement for fpc and on the phone with patient son marysol and updated marysol to patient moving to surgical floor room 208. this rn gave report to micky harris on surgical floor, and updated on plan to follow up with biopsy and to watch for the order to switch iv protonix to oral protonix that md conde said he would switch,. remy left at 0956 with all belonging and in no distress to room 208.
--- NOTE | 2024-09-29 10:27 | NUR ---
TRANSFER PCU TRANSFER AT APPROX 1000. PT A+OX4 ON ARRIVAL. PT DENIES ANY COMPLAINTS OR PAIN AND REPORTS HE IS COMFORTABLE IN BED. ON 2L O2 VIA NC. MALE PUREWICK IN PLACE. VERIFIED WITH IMAGING THAT PT NEEDS TO NPO FOR SPINAL BIOPSY. PT VERBALIZED AN UNDERSTANDING. PT'S SON GARRY AT BEDSIDE FOR SUPPORT. CALL LIGHT WITHIN REACH.
--- NOTE | 2024-09-29 14:08 | NUR ---
PT'S SON GARRY UPDATED ON TREATMENT PLAN AND DISCHARGE PLAN OF PT GOING TO [facility] AT 1600. GARRY VERBALIZED AN UNDERSTANDING. REPORT GIVEN TO BERNARD BLAIR TO ASSUME CARE AT THIS TIME.
--- NOTE | 2024-09-29 14:12 | NUR ---
assumed care of pt from micky jones rn PT HAS ORDERS TO DC TO . SENT COVID SWAB PER ORDERS. PROVIDED ICEWATER PER PT REQUEST.
[2024-09-29 14:21] VITALS: BP 119/56
[2024-09-29 14:49] LABS: SARS-Cov-2 (COVID-19) PCR, MMC NEGATIVE (NEGATIVE)
--- NOTE | 2024-09-29 15:31 | NUR ---
REPORT CALLED TO [facility].
--- NOTE | 2024-09-29 15:48 | NUR ---
TELE BOX RETURNED TO PCU.
--- NOTE | 2024-09-29 16:27 | NUR ---
PT LEFT UNIT VIA WC, ACCOMPANIED BY TRANSPORT. HAD POSSESSIONS IN HAND. TRANSPORTER GIVEN FACILITY PAPERWORK.
[2024-09-30] MEDS ORDERED: Pantoprazole Sodium 20 MG Tab PO SCH (06:00)
== END 2024-09-29 16:29 | DRG 543 ==
LOC: ER 15:25 → ERHOLD 15:26 → PCU 15:26 → SURS 09-29 09:14
PROVIDERS: Emergency Medicine; Internal Medicine; Surgery; ADMIT Student in an Organized Health Care Education/Training Program
PROC: 0DJD8ZZ Inspection of Lower Intestinal Tract, Via Natural or Artificial Opening Endoscopic (ICD-10-PCS; 2024-09-27)
PROC: 30233N1 Transfusion of Nonautologous Red Blood Cells into Peripheral Vein, Percutaneous Approach (ICD-10-PCS; principal; 2024-09-27 11:15)
DX: C79.52 Secondary malignant neoplasm of bone marrow (principal); M84.58XA Pathological fracture in neoplastic disease, other specified site, initial encounter for fracture; N17.9 Acute kidney failure, unspecified; C61 Malignant neoplasm of prostate; D63.0 Anemia in neoplastic disease; K22.2 Esophageal obstruction; Z66 Do not resuscitate; K29.70 Gastritis, unspecified, without bleeding; C79.51 Secondary malignant neoplasm of bone; I48.91 Unspecified atrial fibrillation; E78.00 Pure hypercholesterolemia, unspecified; I50.9 Heart failure, unspecified; I11.0 Hypertensive heart disease with heart failure; F17.200 Nicotine dependence, unspecified, uncomplicated; R59.0 Localized enlarged lymph nodes; R19.5 Other fecal abnormalities; K63.5 Polyp of colon; I95.81 Postprocedural hypotension; Z90.49 Acquired absence of other specified parts of digestive tract; Z95.2 Presence of prosthetic heart valve; Z79.01 Long term (current) use of anticoagulants; Z79.891 Long term (current) use of opiate analgesic
CPT/HCPCS: 36415; 36430; 74177; 80048; 80053; 80069; 82272; 82947; 83735; 85014; 85018; 85025; 85027; 85610; 85730; 86850; 86900; 86901; 86923; 90471; 93005; 93010; 94762; 96361; 96374-59; 97161; 97530; 99285-25; A9270; C1751; G0103; J2470; J2704; J7030; J7040; J7120; P9016; Q9967; U0002

== ENCOUNTER 2024-10-01 09:19 | Emergency (ER) | payer OTHER ==
[~2024-10-01] VITALS: Ht 177.8 cm; Wt 79.4 kg
[2024-10-01 09:37] VITALS: BP 108/50
== END 2024-10-01 11:30 ==
LOC: ER 09:19
DX: R09.02 Hypoxemia (principal); R41.82 Altered mental status, unspecified; C34.90 Malignant neoplasm of unspecified part of unspecified bronchus or lung; R73.03 Prediabetes; I11.0 Hypertensive heart disease with heart failure; I50.9 Heart failure, unspecified; I48.91 Unspecified atrial fibrillation; E78.00 Pure hypercholesterolemia, unspecified; E78.5 Hyperlipidemia, unspecified; F17.200 Nicotine dependence, unspecified, uncomplicated; Z95.2 Presence of prosthetic heart valve; Z66 Do not resuscitate; Z79.01 Long term (current) use of anticoagulants; Z79.899 Other long term (current) drug therapy
CPT/HCPCS: 99285-25